=== PATIENT | male | born 2000 | race Two or more races ===

== ENCOUNTER 2023-10-11 21:08 | Emergency (ER) | payer OTHER ==
[~2023-10-11] VITALS: Ht 175.3 cm; Wt 137.3 kg
[2023-10-11 21:25] VITALS: BP 156/105; PULSE 109; RESP 18; O2SAT 95
[2023-10-12] MEDS ORDERED: ERY05OO OP (00:53)
== END 2023-10-12 01:00 | disposition home or self-care (01) ==
LOC: ER 21:08
DX: H10.33 Unspecified acute conjunctivitis, bilateral (principal)